=== PATIENT | female | born 1990 | race Caucasian/White ===

== ENCOUNTER 2016-08-25 12:45 | Emergency (ER) | payer OTHER | END 2016-08-25 15:24 | disposition home or self-care (01) | LOC: FER 12:45 | DX: S13.4XXA Sprain of ligaments of cervical spine, initial encounter (principal); F41.9 Anxiety disorder, unspecified; F32.9 Major depressive disorder, single episode, unspecified; Z88.9 Allergy status to unspecified drugs, medicaments and biological substances; Z79.899 Other long term (current) drug therapy; V43.52XA Car driver injured in collision with other type car in traffic accident, initial encounter; Y92.410 Unspecified street and highway as the place of occurrence of the external cause | CPT/HCPCS: 72050; 72072; 99284 ==

== ENCOUNTER 2016-10-06 19:19 | Emergency (ER) | payer OTHER ==
[2016-10-06 19:47] LABS: BILIRUBIN NEGATIVE (NEGATIVE); BLOOD NEGATIVE Ery/uL (NEGATIVE); CLARITY CLEAR (CLEAR); COLOR YELLOW (YELLOW); GLUCOSE (U) NORMAL (NORMAL); KETONE (U) NEGATIVE (NEGATIVE); LEUKOCYTES 2+ Leu/uL (NEGATIVE); NITRITE NEGATIVE (NEGATIVE); PROTEIN TRACE (LOW) mg/dL (NEGATIVE); SPECIFIC GRAVITY 1.025 (1.001-1.030); UROBILINOGEN 0.2 mg/dL (0.2-1.0)
[2016-10-06 19:52] LABS: BASOPHIL 0.8 % (0-2); EOSINOPHIL 1.7 % (0-5); HCT 41.1 % (37.0-47.0); HGB 14.3 g/dl (12.5-16.0); LYMPHOCYTE 38.6 % (15-48); MCHC 34.8 g/dL (32.0-36.0); MCV 89.2 fL (78.0-100.0); MONOCYTE 9.1 % (0-12); MPV 10.1 fL (6.0-9.5); NEUTROPHIL 49.8 % (41-80); PLT 225 K/uL (150-400); RBC 4.61 M/uL (4.20-5.40); RDW 12.9 % (11.5-14.0); WBC 5.9 K/uL (4.0-10.5)
[2016-10-06 19:53] LABS: BACTERIA 3+
[2016-10-06 20:09] LABS: ALBUMIN 3.9 g/dL (3.5-5.0); BILIRUBIN - TOTAL 0.2 mg/dL (0.1-1.0); CREATININE 0.7 mg/dL (0.5-1.0); GLOBULIN (CALCULATION) 2.8 g/dL (2.2-4.2); TOTAL PROTEIN 6.7 g/dL (6.4-8.3)
== END 2016-10-06 23:58 | disposition home or self-care (01) ==
LOC: FER 19:19
PROVIDERS: Emergency Medicine Emergency Medical Services
DX: K52.9 Noninfective gastroenteritis and colitis, unspecified (principal); N30.90 Cystitis, unspecified without hematuria; E86.9 Volume depletion, unspecified; F17.200 Nicotine dependence, unspecified, uncomplicated
CPT/HCPCS: 36415; 80053; 81001; 82150; 83690; 85025; 87088; J1170; J1885; J2270; J2405; Q9967

== ENCOUNTER 2021-04-15 13:04 | Emergency (ER) | payer OTHER ==
[~2021-04-15 13:04] MED LIST: 3IN1 COMMODE; ADDERALL 20 MG20 MG PO; BENTYL10 MG PO; IRON18 MG PO; MACROBID100 MG PO; MIRALAX17 GM PO; VISTARIL25 MG PO
[2021-04-15 13:45] LABS: BASOPHIL 0.6 % (0-2); EOSINOPHIL 1.4 % (0-5); HCT 41.3 % (37.0-47.0); HGB 13.5 g/dl (12.5-16.0); LYMPHOCYTE 35.9 % (15-48); MCH 29.9 pg (25.0-31.0); MCHC 32.7 g/dL (32.0-36.0); MCV 91.6 fL (78.0-100.0); MONOCYTE 8.9 % (0-12); MPV 10.6 fL (6.0-9.5); NRBC 0; PLT 171 K/uL (150-400); RBC 4.51 M/uL (4.20-5.40); RDW 11.9 % (11.5-14.0)
[2021-04-15 14:03] LABS: BUN/CREAT RATIO (CALC) 13.6 RATIO; CREATININE 0.59 mg/dL (0.51-0.95); POTASSIUM 3.9 mmol/L (3.5-5.1)
== END 2021-04-15 17:31 | disposition home or self-care (01) ==
LOC: FER 13:04
PROVIDERS: Nurse Practitioner Family
DX: O46.91 Antepartum hemorrhage, unspecified, first trimester (principal); Z3A.01 Less than 8 weeks gestation of pregnancy
CPT/HCPCS: 36415; 76817; 80048; 84702; 85025; 86850; 86900; 86901; J2790

== ENCOUNTER 2021-07-04 15:17 | Emergency (ER) | payer OTHER ==
[2021-07-04 16:24] LABS: BASOPHIL 0.7 % (0-2); HCT 40.3 % (37.0-47.0); HGB 13.5 g/dl (12.5-16.0); LYMPHOCYTE 37.2 % (15-48); MCH 30.2 pg (25.0-31.0); MCHC 33.5 g/dL (32.0-36.0); MCV 90.2 fL (78.0-100.0); MONOCYTE 7.2 % (0-12); MPV 10.8 fL (6.0-9.5); NEUTROPHIL 53.7 % (41-80); NRBC 0; PLT 200 K/uL (150-400); RBC 4.47 M/uL (4.20-5.40); RDW 12.5 % (11.5-14.0)
[2021-07-04 16:50] LABS: BUN/CREAT RATIO (CALC) 15.8 RATIO; CREATININE 0.57 mg/dL (0.51-0.95); POTASSIUM 3.9 mmol/L (3.5-5.1)
== END 2021-07-04 19:02 | disposition home or self-care (01) ==
LOC: FER 15:17
PROVIDERS: Nurse Practitioner Family
DX: O20.9 Hemorrhage in early pregnancy, unspecified (principal); Z88.8 Allergy status to other drugs, medicaments and biological substances; Z3A.01 Less than 8 weeks gestation of pregnancy
CPT/HCPCS: 36415; 76801; 80048; 84702; 85025